=== PATIENT | male | born 1990 | race Caucasian/White ===

== ENCOUNTER 2018-07-25 21:41 | Emergency (ER) | payer SELFPAY ==
[2018-07-25 22:59] LABS: #Lymphocytes 1.2 thou/uL (1.20-3.40); #Neutrophils 5.4 thou/uL (1.40-6.50); %Basophils 0.5 % (0.0-1.0); %Eosinophils 0.6 % (0.0-10.0); %Lymphocytes 15.4 % (21.0-51.0); %Monocytes 12.6 % (0.0-10.0); %Neutrophils 70.9 % (42.0-75.0); Hemoglobin 13.8 g/dL (14.0-18.0); Mean Corpuscular HGB CONC 32.9 g/dL (32.0-36.0); Mean Corpuscular Volume 91.2 fL (78.0-98.0); Mean Platelet Volume 7.5 fL (7.4-10.4); Platelet Count 276 thou/uL (130-400); Red Blood Cell (RBC) Count 4.61 mill/uL (4.70-6.10); White Blood Cell (WBC) Count 7.7 thou/uL (4.8-10.8)
[2018-07-25 23:18] LABS: ALT (SGPT) 35 U/L (8-55); AST (SGOT) 67 U/L (5-34); Albumin 4.6 g/dL (3.5-5.0); Alkaline Phosphatase 93 U/L (40-150); Anion Gap 13 mmol/L (10-20); BUN (Urea Nitrogen) 14 mg/dL (8.9-20.6); Bilirubin, Total 0.3 mg/dL (0.2-1.2); CK (CPK) 893 U/L (30-200); Calc. Creatinine Clearance 0 mL/min (70-130); Calcium 10.1 mg/dL (7.8-10.44); Carbon Dioxide 25 mmol/L (22-29); Chloride 99 mmol/L (98-107); Estimated GFR-MDRD 61; Globulin 3.1 g/dL (2.4-3.5); Glucose 115 mg/dL (70-105); Lipase 10 U/L (8-78); Potassium 3.5 mmol/L (3.5-5.1); Protein, Total 7.7 g/dL (6.0-8.3); Sodium 133 mmol/L (136-145)
--- NOTE | 2018-07-25 23:59 | CT ---
CT OF ABDOMEN AND PELVIS WITHOUT CONTRAST 07/25/18 INDICATION: Right sided flank pain. FINDINGS: There is small punctate stones seen within both kidneys. The largest seen within the superior pole of the right kidney measuring 2 mm. No definite ureteral calculus or hydronephrosis evident. Small phlebolith is seen within the lower right hemipelvis. There is a normal appendix in the right lower quadrant. There is a mild amount of retained stool with in the colon. No free fluid or enlarged lymph nodes are evident. The unopacified liver, spleen, pancreas and adrenal glands appear within normal limits. There is a sm all cortical calcification seen involving the left mid kidney. No definite acute osseous abnormality is evident. IMPRESSION: 1. No ureteral calculus or hydronephrosis. There is bilateral nephrolithiasis. There is a small punctate renal cortical calcification seen in the left mid kidney which is nonspecific. 2. Mild amount of retained stool within the colon. 3. Normal appendix. POS: [facility]
--- NOTE | 2018-07-26 | RAD ---
CHEST ONE VIEW: 07/25/18 INDICATION: Right sided flank pain, shortness of breath. COMPARISON: None. FINDINGS: Lungs are clear. Heart size is normal. No pleural effusion or pneumothorax is evident. No acute osseo us abnormality is evident. IMPRESSION: No acute cardiopulmonary abnormality. POS: [facility]
[2018-07-26 00:16] LABS: Troponin I Less than 0.010 ng/mL (< 0.028)
[2018-07-26] MEDS ORDERED: Acetaminophen 500 MG TAB ONE (00:32)
[2018-07-26] MEDS ORDERED: Ibuprofen 800 MG TAB ONE (00:32)
== END 2018-07-26 00:38 | disposition home or self-care (01) ==
LOC: ERS 21:41
DX: R10.9 Unspecified abdominal pain (principal); R07.9 Chest pain, unspecified; J45.909 Unspecified asthma, uncomplicated; F41.9 Anxiety disorder, unspecified; F43.10 Post-traumatic stress disorder, unspecified; F90.9 Attention-deficit hyperactivity disorder, unspecified type; F17.210 Nicotine dependence, cigarettes, uncomplicated
CPT/HCPCS: 36415; 71045; 74176; 80053; 82550; 83690; 84484; 85025; 93005